=== PATIENT | female | born 1990 | race African-American/Black ===

== ENCOUNTER 2016-11-13 01:59 | Emergency (ER) | payer OTHER ==
[~2016-11-13] VITALS: Ht 162.6 cm; Wt 57.0 kg
[~2016-11-13 01:59] MED LIST: INFL1INJ31 IM; NORE0.358 PO
[2016-11-13 02:01] VITALS: BP 141/93; PULSE 73; RESP 16; TEMP 97.8; O2SAT 97
[2016-11-13] MEDS ORDERED: CYCL1TAB29 PO (02:22)
--- NOTE | 2016-11-13 02:25 | PD ---
HPI Chief Complaint: Injury Time Seen by Provider: 02:14 Travel History International Travel<30 days: No Contact w/Intl Traveler<30days: No Traveled to known affect area: No History of Present Illness HPI 25-year-old female presents for evaluation of left lower back pain. She reports that this evening she was walking and she backed into a wall. She reports that since then she's had a spasming sensation in her left lower back. She reports that after injuring her back she went to a club but she felt uncomfortable and this prompted evaluation. Denies any abdominal pain, radicular symptoms, dysuria, flank pain. No bowel or bladder incontinence. She has no other complaints at this time. [facility] Past Medical History Diminished Hearing: No Immunizations Current: Yes (HEPATITIS) Social History Alcohol Use: No Tobacco Use: No Substance Use: No Allergies-Medications (Allergen,Severity, Reaction): Coded Allergies: No Known Allergies (Verified , 11/13/16) Reported Meds & Prescriptions Reported Meds & Active Scripts Active Fluarix Quadrivalent [id number] 0.5 ml (Influenza Virus Vaccine Split) 1 Inj Inj 0.5 Ml IM ONCE Laisha (Norethindrone (Contraceptive)) 0.35 Mg Tab 0.35 Mg PO DAILY Review of Systems Except as stated in HPI: all other systems reviewed are Neg Physical Exam Narrative GENERAL: Well-developed well-nourished female in no acute distress sitting upright in hospital bed vital signs reviewed SKIN: Warm and dry. CARDIOVASCULAR: Regular rate and rhythm. No murmur appreciated. RESPIRATORY: No accessory muscle use. Clear to auscultation. Breath sounds equal bilaterally. GASTROINTESTINAL: Abdomen soft, non-tender, nondistended. MUSCULOSKELETAL: No obvious deformities. Tender to palpation left lumbosacral paravertebral musculature. There is no tenderness to palpation along the lumbar vertebrae. No CVA tenderness. NEUROLOGICAL: Awake and alert. No obvious cranial nerve deficits. Motor grossly within normal limits. Normal speech. PSYCHIATRIC: Appropriate mood and affect; insight and judgment normal. Data Data Last Documented VS Vital Signs Date Time Temp Pulse Resp B/P Pulse Ox O2 Delivery O2 Flow Rate FiO2 11/13/16 02:01 97.8 73 16 141/93 97 Room Air Orders Ketorolac Inj (Toradol Inj) (11/13/16 02:30) Orphenadrine Inj (Norflex Inj) (11/13/16 02:30) MDM Medical Decision Making Medical Screen Exam Complete: Yes Emergency Medical Condition: Yes Medical Record Reviewed: Yes Differential Diagnosis Lumbar strain, contusion, spasm, fracture, hematoma Narrative Course 25-year-old female who developed left lower back pain after backing into a wall. History and examination are consistent with lumbar strain. Plan is to discharge the patient with a short course of Flexeril. Recommended over-the- counter Tylenol or ibuprofen. She is stable for discharge. Diagnosis Primary Impression: Lumbar strain Qualified Code: S39.012A - Lumbar strain, initial encounter Additional Instructions: Do not drive or drink alcohol when taking Flexeril. Take [id number] Tylenol or ibuprofen. Follow-up with primary care physician as needed. Return for any emergent medical conditions. Med/Other Pt SpecificInfo: Prescription(s) given Scripts Cyclobenzaprine (Flexeril)10 Mg Tab10 Mg PO TID 5 Days Ref 0 Prov:Alvino Chase MD 11/13/16 Disposition: 01 DISCHARGE HOME Condition: Stable Luisito Gutierrez Nov 13, 2016 02:25
[2016-11-13] MEDS ORDERED: KETOROLAC TROMETHAMINE 60 MG/2 ML (IM) VIAL IM ONE (02:30)
[2016-11-13] MEDS ORDERED: ORPHENADRINE INJ 60 MG/2 ML AMP IM ONE (02:30)
== END 2016-11-13 02:48 | disposition home or self-care (01) ==
LOC: NEPB 01:59
DX: S39.012A Strain of muscle, fascia and tendon of lower back, initial encounter (principal); X58.XXXA Exposure to other specified factors, initial encounter; Y99.8 Other external cause status
CPT/HCPCS: 96372; 99283; J1885; J2360

== ENCOUNTER 2017-08-03 18:33 | Emergency (ER) | payer OTHER ==
[~2017-08-03] VITALS: Ht 165.1 cm; Wt 63.1 kg
[~2017-08-03 18:33] MED LIST changes: +CYCL1TAB29 PO
[2017-08-03 19:13] VITALS: BP 156/97; PULSE 63; RESP 14; TEMP 99; O2SAT 100
[2017-08-24] MEDS ORDERED: IBUP400T20 PO (20:25)
== END 2017-08-03 22:04 | disposition left against medical advice (07) ==
LOC: PHED 18:33
DX: Z53.21 Procedure and treatment not carried out due to patient leaving prior to being seen by health care provider (principal)
CPT/HCPCS: 99281

== ENCOUNTER 2017-08-24 19:43 | Emergency (ER) | payer OTHER ==
[~2017-08-24] VITALS: Ht 165.1 cm; Wt 61.0 kg
[~2017-08-24 19:43] MED LIST changes: +CYCL10TA PO; -CYCL1TAB29 PO
[2017-08-24 19:56] VITALS: BP 148/95; PULSE 76; RESP 17; TEMP 98.4
[2017-08-24] MEDS ORDERED: IBUP1TAB5 PO (20:25)
--- NOTE | 2017-08-24 20:44 | PD ---
HPI Chief Complaint: Injury Time Seen by Provider: 20:09 Travel History International Travel<30 days: No Contact w/Intl Traveler<30days: No Traveled to known affect area: No History of Present Illness HPI 26-year-old female presents to emergency department complaining of right arm pain for approximate 4 days. States that she slipped and fell on her stairs, sliding on her butt and back to the bottom step. States that she was initially trying to use ice and anti-inflammatories however, the pain has increased and become more swollen. States that she does have some tingling down to her fingers but denies numbness. States that she is having increased trouble gripping objects secondary to pain. 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 She denies any significant head pain, head trauma, neck pain, back pain, or leg pain. PFSH Past Medical History Medical History: Denies Significant Hx Diminished Hearing: No Immunizations Current: Yes (HEPATITIS) Tetanus Vaccination: Unknown Influenza Vaccination: No ?: Not LMP: Past Surgical History Surgical History: No Previous Surgery Social History Alcohol Use: No Tobacco Use: No Substance Use: No Allergies-Medications (Allergen,Severity, Reaction): Coded Allergies: No Known Allergies (Verified Adverse Reaction, Unknown, 08/24/17) Reported Meds & Prescriptions Reported Meds & Active Scripts Active Reported Ibuprofen 400 Mg Tab Unknown Dose PO Q6H PRN Review of Systems Except as stated in HPI: all other systems reviewed are Neg Physical Exam Narrative GENERAL: Well-developed well-nourished SKIN: Focused skin assessment warm/dry. HEAD: Atraumatic. Normocephalic. ENT: No nasal bleeding or discharge. Mucous membranes pink and moist. NECK: Trachea midline. No JVD. No tenderness to palpation CARDIOVASCULAR: Regular rate and rhythm. No murmur appreciated. RESPIRATORY: No accessory muscle use. Clear to auscultation. Breath sounds equal bilaterally. GASTROINTESTINAL: Abdomen soft, non-tender, nondistended. MUSCULOSKELETAL: No obvious deformities. No clubbing. No cyanosis. No edema. Right elbow: Approximately 3 cm distal to elbow joint with edema and tenderness to palpation. Full range of motion with pain. No crepitus. No obvious ecchymosis. Neurovascularly intact. NEUROLOGICAL: Awake and alert. No obvious cranial nerve deficits. Motor grossly within normal limits. Normal speech. PSYCHIATRIC: Appropriate mood and affect; insight and judgment normal. Data Data Last Documented VS Vital Signs Date Time Temp Pulse Resp B/P (MAP) Pulse Ox O2 Delivery O2 Flow Rate FiO2 08/24/17 19:56 98.4 76 17 148/95 (112) Orders Orders Forearm (2vws) (08/24/17 ) Ed Discharge Order (08/24/17 21:25) MDM Medical Decision Making Medical Screen Exam Complete: Yes Emergency Medical Condition: Yes Differential Diagnosis right forearm fracture versus sprain versus strain Narrative Course 18-year-old female presents to emergency department complaining of right arm pain for approximate 4 days. States that she slipped and fell on her stairs, sliding on her butt and back to the bottom step. States that she was initially trying to use ice and anti-inflammatories however, the pain has increased and become more swollen. States that she does have some tingling down to her fingers but denies numbness. States that she is having increased trouble gripping objects secondary to pain. 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 She denies any significant head pain, head trauma, neck pain, back pain, or leg pain. Right arm neurovascularly intact. Grade 4-5 nursing program chair strength. Vital signs stable Imaging study no acute process Patient has some swelling and likely is irritating the ulnar nerve, causing the tingling of the fingers. Patient to continue [id number] medications per package instructions. Continue ice and range of motion exercises. Advised to return to emergency department if she develops increased pain or swelling. Diagnosis Primary Impression: Forearm contusion Qualified Codes: S50.11XA - Contusion of right forearm, initial encounter Referrals: Primary Care Physician Additional Instructions: Use ice or heat for symptom relief. If symptoms persist or worsen, return to the emergency department. Follow up with your primary care physician within 2 days. Disposition: 01 DISCHARGE HOME Condition: Stable Tova [place] Aug 24, 2017 20:44
--- NOTE | 2017-08-24 21:13 | RADRPT ---
EXAM DATE/TIME: 08/24/2017 20:46 [facility] COMPARISON: No previous studies available for comparison. INDICATIONS : Fall, complains of distal right arm pain. MEDICAL HISTORY : None. SURGICAL HISTORY : None. ENCOUNTER: Initial ACUITY: 1 week PAIN SCORE: 7/10 LOCATION: Right forearm FINDINGS: Two view examination of the right forearm demonstrates no evidence of fracture or dislocation. Bony mineralization is normal. The soft tissue structures are intact. CONCLUSION: Negative trauma study. Ashkan More MD on August 24, 2017 at 21:11 Board Certified Radiologist. This report was verified electronically.
== END 2017-08-24 21:40 | disposition home or self-care (01) ==
LOC: PHEFT 19:43
DX: S50.11XA Contusion of right forearm, initial encounter (principal); W10.9XXA Fall (on) (from) unspecified stairs and steps, initial encounter
CPT/HCPCS: 73090; 99283